=== PATIENT | female | born 2000 | race Caucasian/White ===

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

== ENCOUNTER 2023-11-10 20:20 | Emergency (ER) | payer MEDICAID ==
[~2023-11-10] VITALS: Ht 154.9 cm; Wt 105.5 kg
[2023-11-10 20:22] VITALS: BP 135/81; PULSE 84; TEMP 98.6; O2SAT 99
[2023-11-10 20:55] LABS: BASOPHILS # (AUTO) 0.1 X10'3 (0-0.2); EOSINOPHILS # (AUTO) 0.1 X10'3 (0-0.9); EOSINOPHILS % (AUTO) 0.9 % (0-6); HEMATOCRIT 33.5 % (35.0-45.0); HEMOGLOBIN 10.4 g/dl (12.0-16.0); LYMPHOCYTES # (AUTO) 2.4 X10'3 (1.1-4.8); LYMPHOCYTES % (AUTO) 21.4 % (21-51); MEAN CORPUSCULAR HEMOGLOBIN 20.7 PG (27.0-31.0); MEAN CORPUSCULAR VOLUME 66.9 FL (78-98); MEAN PLATELET VOLUME 7.5 FL (7.4-10.4); MONOCYTES # (AUTO) 0.8 X10'3 (0-0.9); MONOCYTES % (AUTO) 7.5 % (2-12); NEUTROPHILS # (AUTO) 7.7 X10'3 (1.8-7.7); NEUTROPHILS % (AUTO) 69.2 % (42-75); PLATELET COUNT 306 X10'3 (140-440); RED BLOOD COUNT 5.01 X10'6 (4.20-5.60); RED CELL DISTRIBUTION WIDTH 18.1 % (11.5-14.5); WHITE BLOOD COUNT 11.1 X10'3 (4.5-11.0)
[2023-11-10 21:10] LABS: ALANINE AMINOTRANSFERASE 25 U/L (12-78); ALBUMIN 3.6 G/DL (3.4-5.0); ALBUMIN/GLOBULIN RATIO 0.9 (1.1-1.5); ALKALINE PHOSPHATASE 73 IU/L (46-116); ANION GAP 7 (8-16); ASPARTATE AMINO TRANSFERASE 13 U/L (10-37); BILIRUBIN,TOTAL 0.2 MG/DL (0.1-1.0); BLOOD UREA NITROGEN 10 MG/DL (7-18); BUN/CREATININE RATIO 11.8 (10.0-20.0); CALCIUM 8.8 MG/DL (8.5-10.1); CHLORIDE 107 MMOL/L (99-107); CREATININE 0.85 MG/DL (0.40-0.90); GLUCOSE 103 MG/DL (70-104); LIPASE 113 U/L (16-77); POTASSIUM 3.6 MMOL/L (3.5-5.1); SODIUM 142 MMOL/L (135-145); TOTAL CARBON DIOXIDE 27.7 MMOL/L (24-32); TOTAL PROTEIN 7.4 G/DL (6.4-8.2); eCRCL 77 ML/MIN; eGFR 82 ML/MIN
[2023-11-10 21:15] LABS: ANISOCYTOSIS 2+; ELLIPTOCYTES FEW; MICROCYTOSIS 2+; PLATELET ESTIMATE NORMAL
[2023-11-10 21:32] VITALS: RESP 16
[2023-11-10 22:04] LABS: BILIRUBIN,URINE NEGATIVE (Neg); CLARITY,URINE SLIGHTLY CLOUDY (Clear); COLOR,URINE YELLOW (Yellow); GLUCOSE, URINE NEGATIVE (Neg); KETONES,URINE NEGATIVE (Neg); LEUKOCYTE ESTERASE ,URINE NEGATIVE (Neg); NITRITES, URINE NEGATIVE (Neg); OCCULT BLOOD,URINE NEGATIVE (Neg); PROTEIN,URINE NEGATIVE (Neg); URINE HCG NEGATIVE (NEG); UROBILINOGEN,URINE 0.2 E.U/dL (0.2-1.0)
[2023-11-10 22:08] LABS: UA COLLECTION TYPE CLN CATCH MIDSTREAM
[2023-11-10 22:10] LABS: BACTERIA,URINE FEW /HPF (Neg); MUCUS STRANDS MODERATE /LPF (Neg); RBC,URINE 0-2 /HPF (0-2); SQUAMOUS EPITHELIAL CELL,UR MANY /LPF (FEW); WBC,URINE 0-4 /HPF (0-4)
[2023-11-10] MEDS ORDERED: iohexol 300mg/ml 100ml inj. ONE (22:24)
[2023-11-13 11:35] LABS: CHLAMYDIA TRACHOMATIS, NAA Negative (Negative)
== END 2023-11-11 00:30 | disposition home or self-care (01) ==
LOC: ER 20:20
DX: R10.2 Pelvic and perineal pain (principal); D64.9 Anemia, unspecified
CPT/HCPCS: 36415; 74177; 80053; 81001; 81025; 83690; 85008; 85025; 87491; 87591; 99285; Q9967

== ENCOUNTER 2024-03-07 16:08 | Emergency (ER) | payer MEDICAID ==
[~2024-03-07] VITALS: Ht 154.9 cm; Wt 102.7 kg
[2024-03-07 16:11] VITALS: TEMP 97.7
[2024-03-07 17:26] LABS: BILIRUBIN,URINE NEGATIVE (Neg); CLARITY,URINE SLIGHTLY CLOUDY (Clear); COLOR,URINE YELLOW (Yellow); GLUCOSE, URINE NEGATIVE (Neg); KETONES,URINE NEGATIVE (Neg); LEUKOCYTE ESTERASE ,URINE NEGATIVE (Neg); NITRITES, URINE NEGATIVE (Neg); OCCULT BLOOD,URINE NEGATIVE (Neg); PROTEIN,URINE NEGATIVE (Neg); UROBILINOGEN,URINE 0.2 E.U/dL (0.2-1.0)
[2024-03-07 17:28] LABS: UA COLLECTION TYPE VOIDED
[2024-03-07 17:36] LABS: BACTERIA,URINE 1+ /HPF (Neg); MUCUS STRANDS FEW /LPF (Neg); RBC,URINE 0-2 /HPF (0-2); RENAL CELLS, URINE FEW /HPF; SQUAMOUS EPITHELIAL CELL,UR MANY /LPF (FEW); TRANSITIONAL EPI CELLS,URINE MODERATE /HPF; URINE HCG NEGATIVE (NEG); WBC,URINE 0-4 /HPF (0-4)
[2024-03-07 17:57] LABS: BASOPHILS # (AUTO) 0.1 X10'3 (0-0.2); BASOPHILS % (AUTO) 0.5 % (0-1); EOSINOPHILS # (AUTO) 0.1 X10'3 (0-0.9); EOSINOPHILS % (AUTO) 1.3 % (0-6); HEMATOCRIT 31.1 % (35.0-45.0); HEMOGLOBIN 9.7 g/dl (12.0-16.0); LYMPHOCYTES # (AUTO) 2.9 X10'3 (1.1-4.8); LYMPHOCYTES % (AUTO) 25.6 % (21-51); MEAN CORPUSCULAR HEMOGLOBIN 20.3 PG (27.0-31.0); MEAN CORPUSCULAR HGB CONC 31.2 g/dL (33.0-36.5); MEAN CORPUSCULAR VOLUME 65.1 FL (78-98); MEAN PLATELET VOLUME 7.8 FL (7.4-10.4); MONOCYTES # (AUTO) 0.8 X10'3 (0-0.9); MONOCYTES % (AUTO) 6.8 % (2-12); NEUTROPHILS # (AUTO) 7.6 X10'3 (1.8-7.7); NEUTROPHILS % (AUTO) 65.8 % (42-75); PLATELET COUNT 339 X10'3 (140-440); RED BLOOD COUNT 4.77 X10'6 (4.20-5.60); RED CELL DISTRIBUTION WIDTH 18.4 % (11.5-14.5); WHITE BLOOD COUNT 11.5 X10'3 (4.5-11.0)
[2024-03-07 18:15] LABS: ALANINE AMINOTRANSFERASE 25 U/L (12-78); ALBUMIN 3.7 G/DL (3.4-5.0); ALKALINE PHOSPHATASE 83 IU/L (46-116); ANION GAP 9 (8-16); ASPARTATE AMINO TRANSFERASE 11 U/L (10-37); BILIRUBIN,TOTAL 0.2 MG/DL (0.1-1.0); BLOOD UREA NITROGEN 11 MG/DL (7-18); BUN/CREATININE RATIO 16.4 (10.0-20.0); CALCIUM 8.6 MG/DL (8.5-10.1); CHLORIDE 107 MMOL/L (99-107); CREATININE 0.67 MG/DL (0.40-0.90); GLUCOSE 77 MG/DL (70-104); LIPASE 69 U/L (16-77); POTASSIUM 3.9 MMOL/L (3.5-5.1); SODIUM 142 MMOL/L (135-145); TOTAL CARBON DIOXIDE 26.3 MMOL/L (24-32); TOTAL PROTEIN 7.3 G/DL (6.4-8.2); eCRCL 97 ML/MIN; eGFR > 90 ML/MIN
[2024-03-07] MEDS: cyclobenzaprine 10mg tablet PO ONE (19:27)
[2024-03-07] MEDS: ketorolac trometh 15mg/ml vial 15 MG/ML ML IM ONE (19:28)
[2024-03-07 19:32] LABS: ANISOCYTOSIS 2+; ELLIPTOCYTES FEW; MICROCYTOSIS 1+; PLATELET ESTIMATE NORMAL
[2024-03-07 19:34] VITALS: BP 122/74; PULSE 74; RESP 15; O2SAT 99
[2024-03-07] MEDS ORDERED: CYCL-1 PO (19:57)
== END 2024-03-07 21:04 | disposition home or self-care (01) ==
LOC: ER 16:08
DX: R10.30 Lower abdominal pain, unspecified (principal)
CPT/HCPCS: 36415; 76830; 76856; 80053; 81001; 81025; 83690; 85008; 85025; 93976; 96372; 99285; J1885